=== PATIENT | female | born 1950 | race Caucasian/White ===

== ENCOUNTER 2018-01-15 09:53 | Day surgery (SDC) | payer MEDICARE, BC ==
[~2018-01-15] VITALS: Ht 175.3 cm; Wt 103.9 kg
[~2018-01-15 09:53] MED LIST: ACET500 PO; ADVAIR INH; ALBU90I INH; ALBU90OI INH; ALBU90OI6 INH; ALEN70 PO; BUSP15 PO; Calcium Citrat200 MG PO; ERGO50000 PO; ETOD500 PO; FLUT1DIS2 INH; GUAI600T33 PO; LAMISIL AT30 GM TOP; LETR2.5 PO; LORA1 PO; LORA1SY PO; METO25 PO; MIRALAX17 GM PO; Monodox100 MG PO; OMEPRAZOLE MAGN20 MG PO; OXYM.05NI; PREDNISONE TAPER; TIOT18 INH; TOLN1TC TOP; TUMS200 MG; TUMS200 MG PO; Vitamin D PO
[2018-01-15] MEDS ORDERED: ENOX40I SC (14:51)
[2018-01-15] MEDS ORDERED: PROM25 PO (14:52)
[2018-01-15] MEDS ORDERED: ROXICODONE5 MG PO (14:52)
[2018-01-16 05:27] LABS: BASOPHILS ABSOLUTE AUTO 0.02 K/mm3 (0.00-0.23); BASOPHILS PERCENT AUTO 0 % (0-2); EOSINOPHILS ABSOLUTE AUTO 0.04 K/mm3 (0.00-0.68); EOSINOPHILS PERCENT AUTO 1 % (0-6); Hematocrit 37.8 % (33.0-51.0); Hemoglobin 11.8 g/dL (11.5-16.0); IMMATURE GRAN ABSOLUTE AUTO 0.03 K/mm3 (0.00-0.10); IMMATURE GRAN PERCENT AUTO 0 % (0-1); LYMPHOCYTES ABSOLUTE AUTO 1.35 K/mm3 (0.84-5.20); LYMPHOCYTES PERCENT AUTO 16 % (21-46); MONOCYTES ABSOLUTE AUTO 0.74 K/mm3 (0.16-1.47); MONOCYTES PERCENT AUTO 9 % (4-13); Mean Corpuscular HGB 29.5 pg (26.0-34.0); Mean Corpuscular HGB Conc 31.2 g/dL (31.5-36.5); Mean Corpuscular Volume 95 fL (80-100); Mean Platelet Volume 9.1 fL (9.1-12.4); NEUTROPHILS ABSOLUTE AUTO 6.12 K/mm3 (1.96-9.15); NEUTROPHILS PERCENT AUTO 74 % (41-73); Platelet Count 211 K/mm3 (150-400); RDW Coefficient Variation 13.7 % (11.7-14.2); RDW Standard Deviation 47.4 fL (35.1-46.3)
[2018-01-16 05:50] LABS: Anion Gap 5 mmol/L (6-16); Blood Urea Nitrogen 16 mg/dL (8-24); Bun/Creatinine Ratio 26.1 (12.0-20.0); CO2, Blood 28 mmol/L (21-32); Calcium, Blood 8.5 mg/dL (8.5-10.1); Chloride, Blood 109 mmol/L (98-108); Creatinine, Blood 0.61 mg/dL (0.40-1.00); Glomerular Filtration Rate >60 (60-); Glucose, Blood 105 mg/dL (70-99); Magnesium, Blood 1.8 mg/dL (1.6-2.4); Sodium, Blood 142 mmol/L (136-145)
[2018-01-16] MEDS ORDERED: Percocet 5-3251 EACH PO (09:24)
== END 2018-01-16 14:20 | disposition home or self-care (01) ==
LOC: SURS 09:53 → PRE IP 09:53 → SURS 09:53 → ORSCMMR 09:53 → EDSTATUS 12:30 → PRE IP 12:30 → SURS 17:36 → ORSCMMR 01-16 14:20 → SURS 01-16 14:20
PROVIDERS: Orthopaedic Surgery
PROC: 0SRD0J9 Replacement of Left Knee Joint with Synthetic Substitute, Cemented, Open Approach (ICD-10-PCS; principal; 2018-01-15 12:30)
DX: M17.12 Unilateral primary osteoarthritis, left knee (principal); Z01.812 Encounter for preprocedural laboratory examination; Z01.818 Encounter for other preprocedural examination; I10 Essential (primary) hypertension; J44.9 Chronic obstructive pulmonary disease, unspecified; F17.210 Nicotine dependence, cigarettes, uncomplicated; Z79.899 Other long term (current) drug therapy
CPT/HCPCS: 36415; 73560-LT; 80048; 83735; 85025; 86850; 86900; 86901; 88300; 94640; 94760; 97110; 97116; 97162; 97530; C1713; C1776; G8978; G8979; J0171; J0690; J0735; J1170; J1650; J1885; J2250; J2405; J2550; J2795; J3010; J7120

== ENCOUNTER 2018-06-24 07:32 | Day surgery (SDC) | payer MEDICARE, BC ==
[~2018-06-24] VITALS: Ht 175.3 cm; Wt 105.2 kg
[~2018-06-24 07:32] MED LIST changes: +CHOL10002; +CHOL10002 PO; +ENOX40I SC; +PROLIA60 MG/1 ML SC; +PROM25 PO; +Percocet 5-3251 EACH PO; +ROXICODONE5 MG PO
== END 2018-06-24 22:35 | disposition home or self-care (01) ==
LOC: ORSCMMR 07:32 → ORD 08:30 → ORSCMMR 08:30
PROVIDERS: Internal Medicine Gastroenterology
PROC: 0DBN8ZX Excision of Sigmoid Colon, Via Natural or Artificial Opening Endoscopic, Diagnostic (ICD-10-PCS; principal; 2018-06-24 08:30)
PROC: 0DBP8ZX Excision of Rectum, Via Natural or Artificial Opening Endoscopic, Diagnostic (ICD-10-PCS; principal; 2018-06-24 08:30)
DX: Z12.11 Encounter for screening for malignant neoplasm of colon (principal); K62.1 Rectal polyp; K63.5 Polyp of colon; Z86.010 Personal history of colon polyps; F41.9 Anxiety disorder, unspecified; J44.9 Chronic obstructive pulmonary disease, unspecified; I10 Essential (primary) hypertension; K21.9 Gastro-esophageal reflux disease without esophagitis; Z87.891 Personal history of nicotine dependence; Z79.82 Long term (current) use of aspirin; Z79.899 Other long term (current) drug therapy
CPT/HCPCS: 88305; J7120

== ENCOUNTER → 2018-12-01 | Outpatient (CLI) | payer MEDICARE, BC | END | disposition home or self-care (01) | LOC: LAB 14:08 → LAB SHORT 14:08 | PROVIDERS: Family Medicine | DX: Z01.419 Encounter for gynecological examination (general) (routine) without abnormal findings (principal) | CPT/HCPCS: G0145 ==

== ENCOUNTER 2021-10-05 13:41 | Emergency (ER) | payer MEDICARE, BC ==
[~2021-10-05] VITALS: Ht 175.3 cm; Wt 106.6 kg
[2021-10-05] MEDS ORDERED: ONDA4ODT MM (13:57)
[2021-10-05] MEDS ORDERED: CYCL10 PO (13:57)
== END 2021-10-05 14:45 | disposition home or self-care (01) ==
LOC: ER 13:41
DX: M54.50 Low back pain, unspecified (principal); Z88.0 Allergy status to penicillin; Z88.8 Allergy status to other drugs, medicaments and biological substances; Z79.899 Other long term (current) drug therapy; Z87.891 Personal history of nicotine dependence
CPT/HCPCS: 99283; A9270

== ENCOUNTER 2021-11-03 07:11 | Emergency (ER) | payer MEDICARE, BC ==
[~2021-11-03] VITALS: Ht 175.3 cm; Wt 99.8 kg
[~2021-11-03 07:11] MED LIST changes: +CYCL10 PO; +ONDA4ODT MM
[2021-11-03] MEDS ORDERED: DECADRON PO (11:59)
[2021-11-03] MEDS ORDERED: ONDA4ODT MM (12:04)
[2021-11-03] MEDS ORDERED: Norco 5-325 Ta1 EACH PO (12:04)
== END 2021-11-03 12:15 | disposition home or self-care (01) ==
LOC: ER 07:11
DX: C79.51 Secondary malignant neoplasm of bone (principal); C79.49 Secondary malignant neoplasm of other parts of nervous system; C80.1 Malignant (primary) neoplasm, unspecified; M54.50 Low back pain, unspecified; Z87.891 Personal history of nicotine dependence; Z79.899 Other long term (current) drug therapy; Z88.0 Allergy status to penicillin; Z88.5 Allergy status to narcotic agent; Z91.048 Other nonmedicinal substance allergy status; Z91.040 Latex allergy status; Z88.8 Allergy status to other drugs, medicaments and biological substances
CPT/HCPCS: 72158; 96374-59; 96375-59; 96376-59; 99283-25; A9270; A9579; J1170; J2405

== ENCOUNTER → 2021-12-04 | Outpatient (CLI) | payer MEDICARE, BC ==
[~2021-12-04] MED LIST changes: +DECADRON PO; +Norco 5-325 Ta1 EACH PO
== END | disposition home or self-care (01) ==
LOC: LAB 15:45
DX: T81.40XA Infection following a procedure, unspecified, initial encounter (principal)
CPT/HCPCS: 87070; 87077; 87147; 87186; 87205

== ENCOUNTER → 2021-12-08 | Outpatient (CLI) | payer MEDICARE, BC ==
[2021-12-08 12:12] LABS: Source, Urine Foley catheter
[2021-12-08 13:13] LABS: Appearance, Urine Cloudy (Clear); Bilirubin, Urine Neg (Neg); Blood, Urine 1+ (Neg); Color, Urine Yellow (P-Yellow); Glucose Qualitative, Urine Neg (Neg); Ketones, Urine Neg (Neg); Leukocyte Esterase, Urine 3+ (Neg); Nitrite, Urine Neg (Neg); Protein, Urine Neg (Neg); Urobilinogen, Urine NORM (Normal)
[2021-12-08 13:32] LABS: Bacteria Many /hpf; White Blood Cells, Urine TNTC /hpf (0-5)
[2021-12-08 13:33] LABS: Squamous Epithelial Cells Mod /hpf (Few)
== END ==
LOC: LAB HH 12:09
PROVIDERS: Family Medicine
DX: N39.0 Urinary tract infection, site not specified (principal)
CPT/HCPCS: 81001; 87077; 87086; 87186

== ENCOUNTER 2022-01-06 06:30 | Observation (INO) | payer MEDICARE, BC ==
[~2022-01-06] VITALS: Ht 175.3 cm; Wt 94.0 kg
[2022-01-06 07:26] LABS: BASOPHILS ABSOLUTE AUTO 0.03 K/mm3 (0.00-0.23); BASOPHILS PERCENT AUTO 0 % (0-2); EOSINOPHILS ABSOLUTE AUTO 0.01 K/mm3 (0.00-0.68); EOSINOPHILS PERCENT AUTO 0 % (0-6); Hematocrit 37.9 % (33.0-51.0); Hemoglobin 11.1 g/dL (11.5-16.0); IMMATURE GRAN ABSOLUTE AUTO 0.16 K/mm3 (0.00-0.10); IMMATURE GRAN PERCENT AUTO 1 % (0-1); LYMPHOCYTES ABSOLUTE AUTO 2.21 K/mm3 (0.84-5.20); LYMPHOCYTES PERCENT AUTO 15 % (21-46); MONOCYTES ABSOLUTE AUTO 1.03 K/mm3 (0.16-1.47); MONOCYTES PERCENT AUTO 7 % (4-13); Mean Corpuscular HGB 27.9 pg (26.0-34.0); Mean Corpuscular HGB Conc 29.3 g/dL (31.5-36.5); Mean Corpuscular Volume 95 fL (80-100); Mean Platelet Volume 10.1 fL (9.1-12.4); NEUTROPHILS ABSOLUTE AUTO 11.75 K/mm3 (1.96-9.15); NEUTROPHILS PERCENT AUTO 77 % (41-73); NRBC ABSOLUTE 0.03 K/mm3 (0.00-0.02); NRBC Auto 0.2 /100 WBC (0.0-0.2); Platelet Count 285 K/mm3 (150-400); Red Blood Cell Count 3.98 M/mm3 (3.80-5.20); White Blood Cell Count 15.19 K/mm3 (4.00-11.30)
[2022-01-06 07:43] LABS: Albumin, Blood 2.6 g/dL (3.4-5.0); Albumin/Globulin Ratio 0.7 (0.8-1.8); Bilirubin, Total 1.3 mg/dL (0.1-1.0); Bun/Creatinine Ratio 11.8 (12.0-20.0); Calcium, Blood 8.3 mg/dL (8.5-10.1); Creatinine, Blood 2.04 mg/dL (0.40-1.00); Globulin, Blood 3.9 g/dL (2.2-4.0); Potassium, Blood 4.3 mmol/L (3.5-5.5); Total Protein, Blood 6.5 g/dL (6.4-8.2)
[2022-01-06 08:28] LABS: Influenza A, PCR NEGATIVE (NEGATIVE); Influenza B, PCR NEGATIVE (NEGATIVE); Resp Syncytial Virus, PCR NEGATIVE (NEGATIVE); SARS-Cov-2 (COVID-19) PCR, MMC NEGATIVE (NEGATIVE)
[2022-01-06 10:03] LABS: Anti-Xa UFH, PHA Monitoring 0.59 IU/mL; International Normalized Ratio 1.58; Prothrombin Time Results 16.1 Sec (9.7-11.5)
[2022-01-06 12:22] LABS: BASOPHILS ABSOLUTE AUTO 0.05 K/mm3 (0.00-0.23); BASOPHILS PERCENT AUTO 0 % (0-2); EOSINOPHILS ABSOLUTE AUTO 0.01 K/mm3 (0.00-0.68); EOSINOPHILS PERCENT AUTO 0 % (0-6); Hemoglobin 10.6 g/dL (11.5-16.0); IMMATURE GRAN ABSOLUTE AUTO 0.29 K/mm3 (0.00-0.10); IMMATURE GRAN PERCENT AUTO 2 % (0-1); LYMPHOCYTES ABSOLUTE AUTO 3.15 K/mm3 (0.84-5.20); LYMPHOCYTES PERCENT AUTO 17 % (21-46); MONOCYTES ABSOLUTE AUTO 1.55 K/mm3 (0.16-1.47); MONOCYTES PERCENT AUTO 8 % (4-13); Mean Corpuscular HGB 27.6 pg (26.0-34.0); Mean Corpuscular HGB Conc 27.9 g/dL (31.5-36.5); Mean Corpuscular Volume 99 fL (80-100); Mean Platelet Volume 10.7 fL (9.1-12.4); NEUTROPHILS PERCENT AUTO 74 % (41-73); NRBC ABSOLUTE 0.13 K/mm3 (0.00-0.02); NRBC Auto 0.7 /100 WBC (0.0-0.2); Platelet Count 250 K/mm3 (150-400); RDW Coefficient Variation 16.1 % (11.7-14.2); RDW Standard Deviation 58.4 fL (35.1-46.3); Red Blood Cell Count 3.84 M/mm3 (3.80-5.20); White Blood Cell Count 19.05 K/mm3 (4.00-11.30)
[2022-01-06 12:25] LABS: Base Excess Venous -13.4 mmol/L; Bicarbonate Venous 13.4 mmol/L (24.0-30.0); PCO2 Venous 63.2 mmHg (38-42); PO2 Venous 46.1 mmHg (38-42); pH Blood Venous 7.04 (7.34-7.37)
[2022-01-06 12:34] LABS: Bun/Creatinine Ratio 11.7 (12.0-20.0); Calcium, Blood 7.8 mg/dL (8.5-10.1); Creatinine, Blood 2.3 mg/dL (0.40-1.00); Magnesium, Blood 2.3 mg/dL (1.6-2.4); Potassium, Blood 4.6 mmol/L (3.5-5.5)
--- NOTE | 2022-01-06 12:41 | NUR ---
UPDATE Received call from charge nurse that the pt would be transferring from medical floor to PCU 10. Upon arrival the pt was very aggitated and confused attempting to climb out of bed and thrashing around and calling for her who did arrive shortly after she did. She was assisted to a sitting position in the bed. Her skin was dusky and dry. The patient care technician instructor arrived to the room and was assisting this nurse to pull her up in bed. The pt went completely limp and started agonal breathing. She did not respond to her name or sternal rubs. The charge nurse and doctor were talking with the at the bedside and he asked that we not intervene at that point. This nurse stayed with the pt reassuring her and she very quickly ceased to have a pulse or respirations. The sat with her for a few minutes and then reported that he wanted to go home. He was assisted out to his car via w/c by the palliative care nurse. 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
--- NOTE | 2022-01-06 13:27 | NUR ---
TRANSFER/ CODE BLUE NOTATION PT WAS BROUGHT TO THE FLOOR AT 1100. PT WAS APLMER WITH BLUEISH LIPS, CINFUSED, CRYING OUT AND TACHYPNIC UPON ARRIVAL. SHE ASKED FOR WATER AND SAID SHE WAS IN "SO MUCH PAIN." I SPOKE WITH PALLIATIVE ABOUT PAIN MANAGEMENT BUT AT THE TIME OF ARRIVAL HER VITALS WERE NOT CONDUCIVE TO RECIEVING MEDICATIONS. CALLED AND SPOKE TO THE TO GET A HEALTH HISTORY SHE NELLIE "I DON'T KNOW ANYTHING, I DON'T KNOW IT" HE GAVE ME A HEALTH HHISTORY AND I INFORMED HIM THAT WE WOULD APPRECIATE A WORD WITH HIM IF HE COULD COME BACK TO THE HOSPITAL. PALLIATIVE REINFORCED THIS STATMENT. SPOKE WITH THE DCOCTOR AND ENCOURAGE HIM TO COME LAY EYES ON THE PT. HE CAME AND DICTATED ORDER TO BE PUT IN. i WAS PUTTING THEM IN THE MESS ATTENDANT CREW CALLED ME INTO THE ROOM, SHE WAS BLUEISH PURPLE MOTTLED, LIMP, WITH A FIXED GAZE AND UNRESPONSIVE. WE FELT FOR A PULSE SHE BECAME DYSPNIC AND THEN SEEEMED TO STOP BREATHING. WE CALLED A RAPID RESPONSE AND ONCE SHE CEASED BREATHING WE CALLED A CODE WE COULDN'T FIND A PULSE. WE BEGAN COMPRESSIONS AND SHE BEGAN MOANING SO WE STOPPED THEN SHE BECOME UNREPSONSIVE WITH NO PULSE AGAIN AND WE BEGAN COMPRESSIONS ONCE AGAIN, BY THIS TIME THE CODE TEAM HAD ARRIVED.
== END 2022-01-06 18:14 ==
LOC: ER 06:30 → MEDS 06:31 → PCU 12:11
PROVIDERS: Emergency Medicine; ADMIT Internal Medicine
DX: J96.91 Respiratory failure, unspecified with hypoxia (principal); N17.9 Acute kidney failure, unspecified; R79.89 Other specified abnormal findings of blood chemistry; M48.8X4 Other specified spondylopathies, thoracic region; Z85.118 Personal history of other malignant neoplasm of bronchus and lung; Z86.711 Personal history of pulmonary embolism; Z91.040 Latex allergy status; Z88.5 Allergy status to narcotic agent; Z88.0 Allergy status to penicillin; Z88.8 Allergy status to other drugs, medicaments and biological substances; Z91.048 Other nonmedicinal substance allergy status; Z87.891 Personal history of nicotine dependence; Z51.5 Encounter for palliative care; Z20.822 Contact with and (suspected) exposure to COVID-19; Z66 Do not resuscitate
CPT/HCPCS: 0241U; 36415; 71045; 71260; 80048; 80053; 82803; 83735; 83880; 85025; 85520; 85610; 85730; 86850; 86900; 86901; 93005; 93010; 96374-59; 99285-25; G0378; J1170; J2270; J2310; J7030; Q9967